=== PATIENT | female | born 1975 | race Caucasian/White ===

== ENCOUNTER 2019-08-15 11:13 | Outpatient (REF) | payer OTHER, SELFPAY ==
[2019-08-15 21:40] LABS: Calculated LDL 129 mg/dL; Cholesterol 196 mg/dL (<200); Glucose 99 mg/dL (74-106); HDL Cholesterol 46 mg/dL (40-60); TSH 1.55 uIU/mL (0.36-3.74); Triglyceride 107 mg/dL (<150)
== END 2019-08-15 11:33 ==
LOC: NCHCN 11:13
PROVIDERS: PCP Nurse Practitioner Family; Visit Provider Nurse Practitioner Family
DX: Z00.00 Encounter for general adult medical examination without abnormal findings (principal); R53.81 Other malaise; K21.9 Gastro-esophageal reflux disease without esophagitis; G47.8 Other sleep disorders
CPT/HCPCS: 80061; 82947; 84443

== ENCOUNTER 2020-06-24 22:35 | Outpatient (REF) | payer SELFPAY ==
[2020-06-24 19:13] LABS: Abs Immature Grans 0.06 10^3/uL (0.0-0.06); Absolute Basophil Count 0.03 10^3/uL (0.0-0.2); Absolute Eosinophil Count 0.09 10^3/uL (0.0-0.7); Absolute Lymphocyte Count 2.29 10^3/uL (1.2-3.4); Absolute Monocyte Count 1.15 10^3/uL (0.1-0.8); Absolute Neutrophil Count 7.19 10^3/uL (1.2-6.7); Basophils % 0.3; Eosinophils % 0.8; HCT 44.5 % (36.0-46.0); HGB 14.3 g/dL (11.2-15.7); Immature Grans % 0.6; Lymphocytes % 21.2; MCH 29.5 pg (27.0-33.0); MCHC 32.1 % (32.0-36.0); MCV 91.9 fL (80-95); MPV 11.5 fL (8.0-11.0); Monocytes % 10.6; Neutrophils % 66.5; Nucleated RBC 0 %; Platelet Count 217 10^3/uL (130-400); RBC 4.84 10^6/uL (3.93-5.22); RDW 12.7 % (11.7-14.6); RDW-SD 43.3 fL; WBC 10.81 10^3/uL (4.4-10.8)
[2020-06-24 19:22] LABS: ALT 26 U/L (14-59); AST 16 U/L (15-37); Albumin 3.6 g/dL (3.4-5.0); Alkaline Phosphatase 95 U/L (46-116); Anion Gap 6.5 mmol/L (3-11); BUN 14 mg/dL (7-18); Bilirubin, Total 0.2 mg/dL (0.2-1.0); CO2 30.5 mmol/L (21.0-32.0); CREATININE 0.85 mg/dL (0.55-1.02); Chloride 105 mmol/L (98-107); Glucose 100 mg/dL (74-106); Lipase 54 U/L (73-393); Sodium 142 mmol/L (136-145); Total Protein 6.8 g/dL (6.4-8.2)
[2020-06-24 19:41] LABS: Mono Screening Negative (Negative)
[2020-06-24 20:06] LABS: Bacteria Moderate HPF (Negative); C & S Indicated? Yes; Casts Negative LPF (Negative); Crystals Negative HPF (Negative); Epithelial Cells Few HPF (Negative); Mucus Negative (Negative); RBC 0-2 HPF (0-2)
[2020-06-24 20:14] LABS: ESR 20 mm/hr (0-20)
== END 2020-06-24 22:55 ==
LOC: NCHCN 22:35
PROVIDERS: PCP Nurse Practitioner Family; Visit Provider Nurse Practitioner Family
DX: R10.31 Right lower quadrant pain (principal)
CPT/HCPCS: 80053; 83690; 85652; 81015; 85025; 86308; 87086

== ENCOUNTER 2020-07-24 09:19 | Outpatient (REF) | payer OTHER, SELFPAY | END 2020-07-24 09:39 | LOC: NCHCN 09:19 | PROVIDERS: PCP Nurse Practitioner Family; Visit Provider Nurse Practitioner Family | DX: R69 Illness, unspecified (principal) | CPT/HCPCS: 80061; 82947 ==

== ENCOUNTER 2022-03-09 19:15 | Outpatient (REF) | payer MEDICAID, SELFPAY ==
[2022-03-09 15:08] LABS: HCT 44.8 % (36.0-46.0); HGB 14.1 g/dL (11.2-15.7); MCH 28.5 pg (27.0-33.0); MCHC 31.5 % (32.0-36.0); MCV 91 fL (80-95); MPV 11.8 fL (8.0-11.0); Platelet Count 198 10^3/uL (130-400); RBC 4.94 10^6/uL (3.93-5.22); RDW 13.2 % (11.7-14.6); RDW-SD 43.8 fL; WBC 9.22 10^3/uL (4.4-10.8)
[2022-03-09 15:18] LABS: ALT 33 U/L (14-59); AST 24 U/L (15-37); Albumin 3.7 g/dL (3.4-5.0); Alkaline Phosphatase 86 U/L (46-116); Anion Gap 5.8 mmol/L (3-11); BUN 14 mg/dL (7-18); Bilirubin, Total 0.4 mg/dL (0.2-1.0); CO2 30.2 mmol/L (21.0-32.0); CREATININE 0.9 mg/dL (0.55-1.02); Calcium 9.1 mg/dL (8.5-10.1); Chloride 106 mmol/L (98-107); Glucose 93 mg/dL (74-106); Potassium 4.9 mmol/L (3.5-5.1); Sodium 142 mmol/L (136-145); Total Protein 7.2 g/dL (6.4-8.2)
== END 2022-03-09 19:16 | disposition home or self-care (01) ==
LOC: NCHCN 19:15
PROVIDERS: PCP Nurse Practitioner Family; Visit Provider Nurse Practitioner Family
DX: M25.562 Pain in left knee (principal); Z01.812 Encounter for preprocedural laboratory examination
CPT/HCPCS: 80053; 85027

== ENCOUNTER 2022-11-11 09:50 | Outpatient (REF) | payer MEDICAID, SELFPAY ==
--- NOTE | 2022-11-11 09:30 | PAPFT_PTH ---
PATIENT: Lorraine Blank LOC: [facility]#:[id number] AGE/SX: 47/F ROOM: RE11/11/[address]: Tatyana Bell : 1975 BED: DIS: 11/11/2022 SPEC #: [id number] RECD: 11/11/22 17:09 STATUS: ALYSSA RENalia #: [id number] OSCAR: 11/11/22 09:[address]: Tatyana Bell DEPT: [facility] Cytology RECD BY: Daiana Hou Tissues: 1 - CX/ENDOCX FOR PAP SMEARS Procedures: PAP THIN PREP/[facility] Screening HPV DNA PROBE Comments: [id number]
[2022-11-11 15:22] LABS: Calculated LDL 101 mg/dL (<100); Cholesterol 170 mg/dL (<200); HDL Cholesterol 55 mg/dL (40-60); Triglyceride 70 mg/dL (<150)
[2022-11-11 16:14] LABS: TSH (W/Ref FT4) 1.54 uIU/mL (0.36-3.74)
== END 2022-11-11 09:51 | disposition home or self-care (01) ==
LOC: NCHCN 09:50
PROVIDERS: PCP Nurse Practitioner Family; Visit Provider Nurse Practitioner Family
DX: E66.8 Other obesity (principal); Z13.29 Encounter for screening for other suspected endocrine disorder; Z13.1 Encounter for screening for diabetes mellitus; Z12.4 Encounter for screening for malignant neoplasm of cervix; Z11.51 Encounter for screening for human papillomavirus (HPV); Z00.00 Encounter for general adult medical examination without abnormal findings
CPT/HCPCS: 80061; 88142; 83036; 84443; 87624

== ENCOUNTER 2024-02-22 18:04 | Outpatient (REF) | payer MEDICAID, SELFPAY ==
[2024-02-22 15:31] LABS: Abs Immature Grans 0.08 10^3/uL (0.0-0.06); Absolute Basophil Count 0.04 10^3/uL (0.0-0.2); Absolute Lymphocyte Count 2.42 10^3/uL (1.2-3.4); Absolute Monocyte Count 0.66 10^3/uL (0.1-0.8); Basophils % 0.4 %; Eosinophils % 1.1 %; HCT 43.8 % (36.0-46.0); Immature Grans % 0.9 %; Lymphocytes % 27.2 %; MCH 29.3 pg (27.0-33.0); MCV 92 fL (80-95); Monocytes % 7.4 %; RBC 4.78 10^6/uL (3.93-5.22); RDW 12.9 % (11.7-14.6); RDW-SD 43.8 fL
[2024-02-22 15:52] LABS: Diff Comment PLT Morph Reviewed; RBC Morphology Normal
[2024-02-22 16:29] LABS: Hemoglobin A1C 5.2 % (<5.7)
[2024-02-22 16:33] LABS: ALT 27 U/L (14-59); AST 14 U/L (15-37); Albumin 3.6 g/dL (3.4-5.0); Alkaline Phosphatase 93 U/L (46-116); Anion Gap 7.8 mmol/L (3-11); BUN 15 mg/dL (7-18); Bilirubin, Total 0.3 mg/dL (0.2-1.0); CO2 29.2 mmol/L (21.0-32.0); CREATININE 1.1 mg/dL (0.55-1.02); Calculated LDL 97 mg/dL (<100); Chloride 105 mmol/L (98-107); Cholesterol 167 mg/dL (<200); Estimated GFR 60.84 (mL/min/1.73m2); Glucose 142 mg/dL (74-106); HDL Cholesterol 50 mg/dL (40-60); Potassium 4.4 mmol/L (3.5-5.1); Sodium 142 mmol/L (136-145); Total Protein 6.7 g/dL (6.4-8.2); Triglyceride 100 mg/dL (<150)
== END 2024-02-22 18:05 | disposition home or self-care (01) ==
LOC: NCHCN 18:04
PROVIDERS: PCP Nurse Practitioner Family; Visit Provider Physician Assistant Medical
DX: E66.9 Obesity, unspecified (principal); K76.0 Fatty (change of) liver, not elsewhere classified
CPT/HCPCS: 80053; 80061; 83036; 85025